=== PATIENT | female | born 1990 | race American Indian/Alaskan Native ===

== ENCOUNTER 2016-08-02 23:20 | Emergency (ER) | payer SELFPAY | END 2016-08-02 23:45 | disposition left against medical advice (07) | LOC: ED 23:20 | DX: K62.89 Other specified diseases of anus and rectum (principal); Z53.21 Procedure and treatment not carried out due to patient leaving prior to being seen by health care provider ==

== ENCOUNTER 2017-07-10 07:41 | Emergency (ER) | payer SELFPAY ==
[2017-07-10 07:50] VITALS: BP 106/57
--- NOTE | 2017-07-10 10:02 | Emergency Department Report ---
ED Rash HPI - HPI Chief Complaint: Allergic Reaction Stated Complaint: ALLERGIC REACTION/HIVES Time Seen by Provider: 07/10/17 09:30 Duration: 2 Days Location: Back, Abdomen Suspected Cause: Unknown Rash Symptoms: Yes Itching, No Facial Swelling, No Tongue/Oral Swelling, No Breathing Difficulties, No Choking Sensation, No Wheezing/Dyspnea, No Peeling, No Blistering, No Fever, No Lightheaded, No Malaise, No Myalgias Severity: mild Other History: This is a 26-year-old -[place] female who presents with a rash to abdomen and back for 2 days. Patient reports change in soap last week and noticed a rash a few days later. She decided to switch soap back to aveno soap and symptoms did not improve. She is currently taking an loratadine , Benadryl, and hydrocortisone cream with no improvement of symptoms. She is also complaining of vaginal discharge that is intermittent in the past 2 weeks. Discharge is creamy white and itchy. Denies odor. Last menstrual period 2017. Denies recent STD exposure. Patient reports rash is itchy. Denies low back pain, abdominal pain, difficulty swallowing, tongue enlargement, fever, and shortness of breath. ED Review of Systems ROS: Stated complaint: ALLERGIC REACTION/HIVES Other details as noted in HPI Constitutional: denies: chills, fever Respiratory: denies: cough, shortness of breath, wheezing Cardiovascular: denies: chest pain, palpitations Gastrointestinal: denies: abdominal pain, nausea, diarrhea Skin: rash (abdomen and back). denies: lesions Neurological: denies: headache, weakness, paresthesias Psychiatric: denies: anxiety, depression ED Past Medical Hx - Past Medical History Previous Medical History?: No - Surgical History Past Surgical History?: No - Social History Smoking Status: Never Smoker Substance Use Type: None - Medications Home Medications: Home Medications Medication Instructions Recorded Confirmed Last Taken Type Triamcinolone 0.1% [Kenalog 0.1% 1 applic TP TID #60 mg 07/10/17 Unknown Rx CREAM] hydrOXYzine PAMOATE [Vistaril] 25 mg PO Q6HR PRN #20 capsule 07/10/17 Unknown Rx Rash Exam - Exam General: Vital signs noted. No distress. Alert and acting appropriately. HEENT: No Periorbital Edema, No Conjuctival Injection, No Chemosis, No Perioral Edema, No Tongue Edema, No Uvular Edema, No Compromised Airway, No Drooling Lungs: Yes Good Air Exchange (Normal Breath Sounds), No Wheezes, No Ronchi, No Stridor, No Cough, No Labored Respirations, No Retractions, No Use of Accessory Muscles, No Other Abnormal Lung Sounds Heart: Yes Regular, No Murmur Skin: Yes Maculopapular Rash (multiple 3-5 mm erythematous vesicles to anterior and posterior trunk), No Urticarial Rash, No Morbilliform rash, No Bulla(e), No Excoriations, No Weeping, No Tenderness, No Erythema, No Edema, No Encrustations , No Other Other: Positive: Neurologic Normal ED Course Vital Signs 07/10/17 07:45 Temperature 98.7 F Pulse Rate 95 H Respiratory 18 Rate Blood Pressure 106/57 O2 Sat by Pulse 100 Oximetry ED Medical Decision Making - Medical Decision Making This is a 26 y.o. female with rash to anterior and posterior trunk for 2 days and vaginal discharge. Patient examined by me. No distress noted. Vitals stable. Obtained UA, unremarkable. Physical assessment susceptible of allergic contact dermatitis. Given dexamethasone 8 mg IM once in ER and Vistaril. Start triamcinolone cream and Vistaril. F/u with PCP in 24-72 hours. Discussed plan with patient mother and agreed to plan. Critical care attestation.: If time is entered above; I have spent that time in minutes in the direct care of this critically ill patient, excluding procedure time. ED Disposition Clinical Impression: Vaginal discharge Contact dermatitis Qualifiers: Contact dermatitis type: allergic Contact dermatitis trigger: unspecified trigger Qualified Code(s): L23.9 - Allergic contact dermatitis, unspecified cause Disposition: DC- TO HOME OR SELFCARE Is pt being admited?: No Does the pt Need Aspirin: No Condition: Stable Instructions: Contact Dermatitis (ED) Additional Instructions: Apply a thin layer of triamcinolone cream twice a day for 5-10 days. Wash area after daily. Monitor use of perfume or sensory soaps and detergents. Follow up with primary care provider in 24-72 hours. Prescriptions: hydrOXYzine PAMOATE [Vistaril] 25 mg PO Q6HR PRN #20 capsule PRN Reason: Itching Triamcinolone 0.1% [Kenalog 0.1% CREAM] 1 applic TP TID #60 mg Referrals: [facility] [Outside] - 3-5 Days [facility] [Outside] - 3-5 Days [facility] [Outside] - 3-5 Days Forms: Work/School Release Form(ED) Time of Disposition: 11:15 Print Language: WOLOF
[2017-07-10 11:06] LABS: Bacteria,Urine 1+ /HPF (Negative); Bilirubin,Urine NEG (Negative); Blood,Urine SM (Negative); Color,Urine Straw (Yellow); Mucus,Urine FEW /HPF; Protein,Urine <15 mg/dL mg/dL (Negative); Urobilinogen,Urine < 2.0 mg/dL (<2.0)
[2017-07-10] MEDS ORDERED: DECADRON IM ONE (11:15)
[2017-07-10] MEDS ORDERED: VISTARIL PO ONE (11:15)
== END 2017-07-10 11:44 | disposition home or self-care (01) ==
LOC: ED 07:41
DX: L25.9 Unspecified contact dermatitis, unspecified cause (principal); N89.8 Other specified noninflammatory disorders of vagina
CPT/HCPCS: 81001; 96372; 99283; J1100; Q0177

== ENCOUNTER 2019-01-24 13:41 | Emergency (ER) | payer SELFPAY ==
--- NOTE | 2019-01-24 15:13 | XRay Report ---
CHEST 2 VIEWS INDICATION / CLINICAL INFORMATION: persistant cough. COMPARISON: None available. FINDINGS: SUPPORT DEVICES: None. HEART / MEDIASTINUM: No significant abnormality. LUNGS / PLEURA: No significant pulmonary or pleural abnormality. No pneumothorax. ADDITIONAL FINDINGS: No significant additional findings. IMPRESSION: 1. No acute findings. Signer Name: Maria G Ralph MD Signed: 01/24/2019 3:08 PM Workstation Name: [id number]
[2019-01-24 18:14] VITALS: BP 105/67
--- NOTE | 2019-01-24 18:55 | Emergency Department Report ---
HPI - General Chief Complaint: Upper Respiratory Infection Time Seen by Provider: 01/24/19 18:37 - HPI HPI: Room 34 The pt is a 28 y/o F p/w a cc of cough and congestion. The pt states she's had a cough productive of green sputum x 1-2 weeks. Pt admits to a subjective fever. The pt has had rhinorrhea and occ n/v. There have been no known sick contacts. The prt also is requesting a urinalysis /c she has had dysuria ED Past Medical Hx - Past Medical History Previous Medical History?: No - Surgical History Past Surgical History?: No - Family History Family history: no significant - Social History Smoking Status: Never Smoker Substance Use Type: None - Medications Home Medications: Home Medications Medication Instructions Recorded Confirmed Last Taken Type Triamcinolone 0.1% [Kenalog 0.1% 1 applic TP TID #60 mg 07/10/17 Unknown Rx CREAM] hydrOXYzine PAMOATE [Vistaril] 25 mg PO Q6HR PRN #20 capsule 07/10/17 Unknown Rx Benzonatate [Tessalon Perles] 100 mg PO Q8HR #30 capsule 01/24/19 Unknown Rx Ciprofloxacin HCl [Ciprofloxacin 500 mg PO Q12HR #14 tab 01/24/19 Unknown Rx TAB] Oxymetazoline 0.05% [Vicks Sinex] 1 spray NS BID PRN #1 bottle 01/24/19 Unknown Rx ED Review of Systems ROS: Stated complaint: VOMIT/CHOKING Other details as noted in HPI Constitutional: fever (subjective) Eyes: denies: eye pain ENT: denies: throat pain Respiratory: cough, shortness of breath Endocrine: no symptoms reported Gastrointestinal: nausea, vomiting Genitourinary: dysuria, discharge Musculoskeletal: denies: back pain Physical Exam - Physical Exam Vital Signs: Vital Signs 01/24/19 01/24/19 14:17 18:14 Temperature 98.6 F 98.0 F Pulse Rate 74 87 Respiratory 18 16 Rate Blood Pressure 102/46 Blood Pressure 105/67 [Left] O2 Sat by Pulse 99 98 Oximetry Physical Exam: GEN: WD WN F sitting in chair in NAD HEENT: NCAT, EOMI NECK:Trachea midline, no stridor CV: rrr no m/r/g Pulm: CTAB. no resp distress ABD: s/nt/nd +BS Neuro: GCS 15 SKIN: no diaphoresis MS: no evidence of acute injury ED Course Vital Signs 01/24/19 01/24/19 14:17 18:14 Temperature 98.6 F 98.0 F Pulse Rate 74 87 Respiratory 18 16 Rate Blood Pressure 102/46 Blood Pressure 105/67 [Left] O2 Sat by Pulse 99 98 Oximetry ED Medical Decision Making - Lab Data Laboratory Tests 01/24/19 01/24/19 19:13 20:00 Urine Color Yellow Urine Turbidity Clear Urine pH 6.0 Ur Specific [place] 1.018 Urine Protein <15 mg/dl Urine Glucose (UA) Neg Urine Ketones Neg Urine Blood Neg Urine Nitrite Neg Urine Bilirubin Neg Urine Urobilinogen < 2.0 Ur Leukocyte Esterase Tr Urine WBC (Auto) 2.0 Urine RBC (Auto) 3.0 U Epithel Cells (Auto) 4.0 Urine Bacteria (Auto) 2+ Urine Mucus Few Urine HCG, Qual Negative Influenza A (Rapid) Negative Influenza B (Rapid) Negative - Medical Decision Making PT refuses pelvic exam. Pt verbalizes understanding that significant diseases may go undiagnosed if pelvic exam not performed. - Differential Diagnosis sinusitis, influenza, uri, uti, urethrities, vaginitis Critical care attestation.: If time is entered above; I have spent that time in minutes in the direct care of this critically ill patient, excluding procedure time. ED Disposition Clinical Impression: Acute bronchitis, Dysuria Disposition: -01 TO HOME OR SELFCARE Is pt being admited?: No Does the pt Need Aspirin: No Condition: Stable Instructions: Acute Bronchitis (ED) Additional Instructions: Return to the emergency department should you develop worsening symptoms, inability to tolerate food or liquids, high fever or any other concerns Prescriptions: Ciprofloxacin HCl [Ciprofloxacin TAB] 500 mg PO Q12HR #14 tab Benzonatate [Tessalon Perles] 100 mg PO Q8HR #30 capsule Oxymetazoline 0.05% [Vicks Sinex] 1 spray NS BID PRN #1 bottle PRN Reason: Nasal Congestion Referrals: [facility] [Outside] - 3-5 Days Time of Disposition: 20:30
[2019-01-24 19:39] LABS: Bacteria,Urine 2+ /HPF (Negative); Bilirubin,Urine NEG (Negative); Blood,Urine NEG (Negative); Color,Urine Yellow (Yellow); Mucus,Urine FEW /HPF; Protein,Urine <15 mg/dL mg/dL (Negative); Urobilinogen,Urine < 2.0 mg/dL (<2.0)
[2019-01-24 19:40] LABS: HCG Qualitative,Urine Negative (Negative)
== END 2019-01-24 21:16 | disposition home or self-care (01) ==
LOC: ED 13:41
DX: J20.9 Acute bronchitis, unspecified (principal); R30.0 Dysuria; Z79.899 Other long term (current) drug therapy
CPT/HCPCS: 71046; 81001; 81025; 87400